=== PATIENT | male | born 1975 | race Caucasian/White ===

== ENCOUNTER 2017-07-09 20:34 | Emergency (ER) | payer OTHER ==
[2017-07-09 20:43] VITALS: BP 143/92; PULSE 64; TEMP 97.7; BMI 29.4
--- NOTE | 2017-07-09 20:55 | PDOC ---
Post Exposure HPI - General Chief Complaint: Non EmpBld/Body Flud Exposure Stated Complaint: EXPOSURE/YPD Time Seen by Provider: 07/09/17 20:45 History Source: Patient - History of Present Illness Timing: just prior to arrival Exposed Location: Bilateral: Face Assessing Significant Risk PEP: Yes Mucocutaneous Past History - Past Medical History Allergies/Adverse Reactions: Allergies Allergy/AdvReac Type Severity Reaction Status Date / Time No Known Allergies Allergy Verified 07/09/17 20:42 Home Medications: Ambulatory Orders No Home Medications 0 dose .ROUTE UTDICT 10/25/13 Other medical history: denies - Surgical History Appendectomy: Yes - Suicide/Smoking/Psychosocial Hx Smoking History: Never smoked Hx Alcohol Use: Yes (SOCIAL) Substance Use Type: None Review of Systems - Review of Systems HEENTM: No: Eye Pain, Blurred Vision *Physical Exam - Vital Signs Last Vital Signs Temp Pulse Resp BP Pulse Ox 97.7 F 64 18 143/92 99 07/09/17 20:40 07/09/17 20:40 07/09/17 20:40 07/09/17 20:40 07/09/17 20:40 - Physical Exam General Appearance: Yes: Appropriately Dressed. No: Apparent Distress HEENT: positive: Normal Voice. negative: Scleral Icterus (R), Scleral Icterus ( L) Neck: positive: Supple Respiratory/Chest: negative: Respiratory Distress Integumentary: positive: Dry, Warm Neurologic: positive: Fully Oriented, Alert, Normal Mood/Affect Medical Decision Making - Medical Decision Making 07/09/17 20:51 42-year-old male, no significant history, here after being exposed to body fluids. Patient works for [employer] while in the ED at [employer] with a suspect in custody, that suspect who is homeless with a mental disorder, had a seizure and that spittle got onto pt's face, but not sure it got into his eyes. Has since irrigated eye with water and reports no symptoms at this time. [facility] ED staff tested source patient for HIV and hepatitis and gave pt the impression that source tested negative for any communicable diseases. Pt has been immunized against HBV. Does not want PEP or any blood tests done at this time. Here mostly for documentation purposes. 07/09/17 20:55 07/09/17 20:56 *DC/Admit/Observation/Transfer Diagnosis at time of Disposition: Patient exposure to body fluids - Discharge Dispostion Disposition: HOME Condition at time of disposition: Good - Referrals - Patient Instructions Additional Instructions: You had a very low risk exposure today. Given the circumstances and that source patient tested negative for communicable diseases at [facility] as per history, PEP and blood tests are not recommended at this time. Please follow-up with your PMD as needed - Post Discharge Activity Work/School Note: Back to Work
== END 2017-07-09 20:56 | disposition home or self-care (01) ==
LOC: JERFT 20:34
DX: Z77.21 Contact with and (suspected) exposure to potentially hazardous body fluids (principal); Y35.891A Legal intervention involving other specified means, law enforcement official injured, initial encounter; Y93.89 Activity, other specified; Y92.238 Other place in hospital as the place of occurrence of the external cause; Y99.0 Civilian activity done for income or pay
CPT/HCPCS: 99281-25